=== PATIENT | female | born 1985 | race Caucasian/White ===

== ENCOUNTER 2017-07-27 11:46 | Emergency (ER) | payer OTHER ==
[2017-07-27 11:52] VITALS: BP 118/68
[2017-07-27] MEDS ORDERED: LIDOCAINE 1% INJ (10 MG/ML) 10 ML MDV INJ ONE (12:19)
--- NOTE | 2017-07-27 13:01 | ER Document Report ---
ED Skin Rash/Insect Bite/Abscs - General Chief Complaint: Abscess Stated Complaint: ABSCESS/INNER THIGH Time Seen by Provider: 07/27/17 12:06 Notes: pt presents with painful area to left inner thigh. has taken septra with no improvement - HPI Patient complains to provider of: Tender/swollen area Onset/Duration: Gradual, Persistent Skin Temperature: Warm Quality of rash: Painful - Related Data Allergies/Adverse Reactions: No Known Allergies Allergy (Verified 07/27/17 12:01) Past Medical History - General Information source: Patient - Social History Smoking Status: Current Every Day Smoker Chew tobacco use (# tins/day): No Frequency of alcohol use: None Drug Abuse: None Family History: None Patient has suicidal ideation: No Patient has homicidal ideation: No - Medical History Medical History: Negative Renal/ Medical History: Denies: Hx Peritoneal Dialysis Past Surgical History: Reports: Hx Abdominal Surgery - gastric sleeve, Hx Section Review of Systems - Review of Systems Constitutional: No symptoms reported EENT: No symptoms reported Cardiovascular: No symptoms reported Respiratory: No symptoms reported Gastrointestinal: No symptoms reported Genitourinary: No symptoms reported Female Genitourinary: No symptoms reported Musculoskeletal: No symptoms reported Skin: No symptoms reported Hematologic/Lymphatic: No symptoms reported Neurological/Psychological: No symptoms reported Physical Exam - Vital signs Vitals: Temp Pulse Resp BP Pulse Ox 99.3 F 86 16 118/68 100 07/27/17 11:51 07/27/17 11:51 07/27/17 11:51 07/27/17 11:51 07/27/17 11:51 Interpretation: Normal - General General appearance: Appears well, Alert - HEENT Head: Normocephalic, Atraumatic Eyes: Normal Pupils: PERRL - Respiratory Respiratory status: No respiratory distress Chest status: Nontender Breath sounds: Normal Chest palpation: Normal - Cardiovascular Rhythm: Regular Heart sounds: Normal auscultation Murmur: No - Abdominal Inspection: Normal Distension: No distension Bowel sounds: Normal Tenderness: Nontender Organomegaly: No organomegaly - Back Back: Normal, Nontender - Extremities General upper extremity: Normal inspection, Nontender, Normal color, Normal ROM , Normal temperature General lower extremity: Normal inspection, Nontender, Normal color, Normal ROM , Normal temperature, Normal weight bearing. No: Dion's sign - Neurological Neuro grossly intact: Yes Cognition: Normal Orientation: AAOx4 Douds Coma Scale Eye Opening: Spontaneous Judy Coma Scale Verbal: Oriented D[place] Coma Scale Motor: Obeys Commands Douds Coma Scale Total: 15 Speech: Normal Motor strength normal: LUE, RUE, LLE, RLE Sensory: Normal - Psychological Associated symptoms: Normal affect, Normal mood - Skin Skin Temperature: Warm Skin Moisture: Dry Skin Color: Normal Skin irregularity: Abscess - left inner thigh Course - Re-evaluation Re-evalutation: 07/27/17 13:11 3cc 1% lidocaine injected into indurated area, 18g needle inserted into area. no purulent material expressed. - Vital Signs Vital signs: Temp Pulse Resp BP Pulse Ox 99.3 F 86 16 118/68 100 07/27/17 11:51 07/27/17 11:51 07/27/17 11:51 07/27/17 11:51 07/27/17 11:51 Discharge - Discharge Clinical Impression: Abscess of left thigh Condition: Stable Disposition: HOME, SELF-CARE Instructions: Abscess ([facility]), Antibiotic Therapy ([facility]) Additional Instructions: take your antibiotic as prescribed apply warm compresses to area follow up with primary care if symptoms worsen Prescriptions: Clindamycin HCl 300 mg PO Q6H #40 capsule
== END 2017-07-27 13:13 | disposition home or self-care (01) ==
LOC: ER 11:46
PROC: 0H9JXZZ Drainage of Left Upper Leg Skin, External Approach (ICD-10-PCS; principal; 2017-07-27)
DX: L02.416 Cutaneous abscess of left lower limb (principal); F17.200 Nicotine dependence, unspecified, uncomplicated
CPT/HCPCS: 99283

== ENCOUNTER 2017-10-18 18:42 | Emergency (ER) | payer OTHER ==
[2017-10-18 18:54] VITALS: BP 113/66
[2017-10-18] MEDS ORDERED: LIDOCAINE 4%/TETRACAINE 0.5%/EPI 0.18% 5 ML TOPICAL SOLN TOP ONE (18:55)
--- NOTE | 2017-10-18 19:15 | ER Document Report ---
ED Skin Rash/Insect Bite/Abscs - General Chief Complaint: Abscess Stated Complaint: ABSCESS/UPPER LEFT LEG Time Seen by Provider: 10/18/17 18:54 Mode of Arrival: Ambulatory Information source: Patient Notes: 32-year-old female presented ED for abscess to the left upper thigh. She states she has had it in the same area before but it is come back again and is worse this time than before. She states it is very painful at this time. She states it first appeared yesterday. TRAVEL OUTSIDE OF THE [place] IN LAST 30 DAYS: No - HPI Patient complains to provider of: Tender/swollen area Onset: Yesterday Onset/Duration: Gradual, Intermittent - Had a abscess and this is same area before, Worse Severity: Moderate Pain Level: 3 Skin Character: Abscess Quality of rash: Painful Identify cause: No Exacerbated by: Denies Relieved by: Denies Similar symptoms previously: Yes Recently seen / treated by doctor: No - Related Data Allergies/Adverse Reactions: No Known Allergies Allergy (Verified 07/27/17 12:01) Past Medical History - General Information source: Patient Last Menstrual Period: Now - Social History Smoking Status: Current Every Day Smoker Cigarette use (# per day): Yes - 4 cigarettes a day Chew tobacco use (# tins/day): No Smoking Education Provided: Yes - 4 minutes Frequency of alcohol use: None Drug Abuse: None Occupation: Student Lives with: Family Family History: None - Past Medical History Cardiac Medical History: Reports: None Pulmonary Medical History: Reports: None EENT Medical History: Reports: None Neurological Medical History: Reports: None Endocrine Medical History: Reports: None Renal/ Medical History: Reports: None Malignancy Medical History: Reports: None GI Medical History: Reports: None Musculoskeltal Medical History: Reports None Skin Medical History: Reports None Psychiatric Medical History: Reports: None Traumatic Medical History: Reports: None Infectious Medical History: Reports: None Past Surgical History: Reports: Hx Abdominal Surgery - gastric sleeve, Hx Section - 2 Review of Systems - Review of Systems Constitutional: No symptoms reported EENT: No symptoms reported Cardiovascular: No symptoms reported Respiratory: No symptoms reported Gastrointestinal: No symptoms reported Genitourinary: No symptoms reported Female Genitourinary: No symptoms reported Musculoskeletal: No symptoms reported Skin: Other - Abscess left upper thigh Hematologic/Lymphatic: No symptoms reported Neurological/Psychological: No symptoms reported -: Yes All other systems reviewed and negative Physical Exam - Vital signs Vitals: Temp Pulse Resp BP Pulse Ox 98.2 F 79 18 113/66 100 10/18/17 18:49 10/18/17 18:49 10/18/17 18:49 10/18/17 18:49 10/18/17 18:49 Interpretation: Normal - General General appearance: Appears well, Alert - HEENT Head: Normocephalic, Atraumatic Eyes: Normal Pupils: PERRL - Respiratory Respiratory status: No respiratory distress Chest status: Nontender Breath sounds: Normal Chest palpation: Normal - Cardiovascular Rhythm: Regular Heart sounds: Normal auscultation Murmur: No - Abdominal Inspection: Normal Distension: No distension Bowel sounds: Normal Tenderness: Nontender Organomegaly: No organomegaly - Back Back: Normal, Nontender - Extremities General upper extremity: Normal inspection, Nontender, Normal color, Normal ROM , Normal temperature General lower extremity: Normal inspection, Nontender, Normal color, Normal ROM , Normal temperature, Normal weight bearing. No: Dion's sign - Neurological Neuro grossly intact: Yes Cognition: Normal Orientation: AAOx4 Judy Coma Scale Eye Opening: Spontaneous Gilbert Coma Scale Verbal: Oriented Judy Coma Scale Motor: Obeys Commands Judy Coma Scale Total: 15 Speech: Normal Motor strength normal: LUE, RUE, LLE, RLE Sensory: Normal - Psychological Associated symptoms: Normal affect, Normal mood - Skin Skin Temperature: Warm Skin Moisture: Dry Skin Color: Normal Skin irregularity: Abscess Location of irregularity: Other - Left upper thigh almost to the groin Irregularity with: Swelling, Tenderness, Warmth Course - Re-evaluation Re-evalutation: 10/18/17 20:01 Large abscess to the left inner upper thigh. I&D completed with a large amount of purulent drainage. Patient started on Keflex and Bactrim and given a Toradol injection in the emergency room as she has had a gastric sleeve in the past and cannot take ibuprofen. She will be discharged home with prescription for Keflex and Bactrim. Patient encouraged to take Epson salt baths or use Epson salt compresses to the area 3-4 times a day and change the dressing. - Vital Signs Vital signs: Temp Pulse Resp BP Pulse Ox 98.2 F 77 18 113/66 100 10/18/17 18:49 10/18/17 20:32 10/18/17 20:32 10/18/17 18:49 10/18/17 20:32 Procedures - Incision and Drainage Left Thigh Time completed: 20:00 Type: Simple Anesthetic type: 1% Lidocaine mL's of anesthetic: 5 - l.e.t and lidocaine Blade size: 11 I&D procedure: Shurclens applied, Sterile dressing applied Incision Method: Incision made by scalpel Amount/type of drainage: large amount of purulent drainage Discharge - Discharge Clinical Impression: Abscess left upper inner thigh Condition: Stable Disposition: HOME, SELF-CARE Additional Instructions: ABSCESS: You have an abscess (boil). This a pus-forming infection, usually due to staph. Some boils may be left to drain on their own, but most require lancing. From the time the tender lump first appears, it may be three or four days before the abscess is ready to johanna. Local heat and rest help at this stage of treatment. An antibiotic may prevent spread of the infection. Once the abscess is opened, packing may be placed into it. This is done so pus is not sealed inside by premature closure of the cavity. The packing will be removed at your follow-up visit or you may be advised to remove it yourself at home. Sometimes this packing must be replaced a few times during healing. The wound will heal with surprisingly little scar. Depending on the size and location of an abscess, healing can take one to four weeks. You may shower and wash the area around the incision site two or three times a day. Antibiotics may be prescribed, but are usually not necessary after an abscess has been drained. If you develop fever, chills, worsening pain, or increasing swelling in the area, call the doctor or return immediately. POST INCISION AND DRAINAGE: You have had an incision made to allow drainage of an abscess. The incision must remain open so that pus and debris can drain from the wound. If the abscess cavity is large, packing is placed. This keeps the tissues from collapsing and trapping pus inside, while the body shrinks the cavity. The packing may need to be replaced every day or two. The physician will instruct you on the packing. Keep a bulky dressing over the area. Replace it if it becomes saturated with blood or pus. Do not disturb the packing (if present). You may shower and cleanse the area with gentle soap and warm water two or three times a day. Local warmth may be soothing, and may promote faster healing. Return if you develop high fever or chills, or if you note spreading redness, increasing swelling, or increasing tenderness. Epsom Salt Soaks Soak the wound area in a container of warm epsom salt water. If you can't get the wound area into a bucket or cruz, use a folded towel soaked in the epsom salt solution and apply to the area. Use clean hot tap water (about the temperature of a very warm bath), mixing in about one (1) teaspoon for every pint of water. Two gallon --> 16 teaspoons Epsom Salts One gallon --> 8 teaspoons Epsom Salts Two quarts --> 4 teaspoons Epsom Salts One quart --> 2 teaspoons Epsom Salts Soak the wound for about 20 minutes while gently moving it around in the water. Repeat this four (4) times a day. ORAL NARCOTIC MEDICATION: You have been given a prescription for pain control. This medication is a narcotic. It's best taken with food, as nausea can result if taken on an empty stomach. Don't operate machinery or drive within six hours of taking this medication. Do not combine this medicine with alcohol, or with any medication which can cause sedation (such as cold tablets or sleeping pills) unless you get permission from the physician. Narcotics tend to cause constipation. If possible, drink plenty of fluids and eat a diet high in fiber and fruits. CEPHALEXIN: The antibiotic you've been prescribed is a member of the cephalosporin class. This type of antibiotic covers a wide variety of infections, including those of the skin, lungs, and urinary tract. It's useful for staph infections. This antibiotic is slightly similar to the penicillin family. In rare cases , a person who is allergic to penicillin will also be allergic to this medication. If you have had a severe allergic reaction to penicillin, and have not taken this antibiotic since that time, notify your doctor. Antibiotics which cover many germs ("broad spectrum" antibiotics) are more likely to cause diarrhea or "yeast" infections. Women prone to vaginal yeast problems may suffer an attack after taking this antibiotic. In infants, oral thrush (white spots "stuck" on the cheek) or yeast diaper rash may result. See your doctor if these problems occur. Call at once if you develop itching, hives , shortness of breath, or lightheadedness. TRIMETHOPRIM-SULFA: You have been given a prescription for trimethoprim-sulfa (TMS, Septra, Bactrim). This is a combination antibiotic of the sulfa class, often used for urinary tract infections, middle ear infections, bronchitis, shigella intestinal infection, and Pneumocystis pneumonia. TMS is usually well-tolerated. Occasional side effects include nausea and decreased appetite. Septra is not recommended for infants less than two months of age. Do not take this medication if you have experienced severe side effects or allergy to sulfa medicine. You should stop this medicine at once and contact your physician if you develop any rash, joint pain, shortness of breath, bruising, or jaundice ( yellow color in the skin), or if you develop any other new or unusual symptoms. FOLLOW-UP CARE: Most simple abscesses will not require a follow up visit. If you had packing placed in the abscess, remove it as instructed by the physician. If you have been referred to a physician for follow-up care, call the physicians office for an appointment as you were instructed or within the next two days. If you experience worsening or a significant change in your symptoms, return to the Emergency Department at any time for re-evaluation. Prescriptions: Hydrocodone/Acetaminophen [May 5-325 Tablet] 1 each PO Q6HP PRN #7 tablet PRN Reason: Cephalexin Monohydrate [Keflex 500 mg Capsule] 500 mg PO Q6H 5 Days capsule Sulfamethoxazole/Trimethoprim [Bactrim Ds Tablet] 1 each PO BID #20 tablet Forms: Smoking Cessation Education Referrals: TYRONE LOYD PA-C [Primary Care Provider] - Follow up in 3-5 days
[2017-10-18] MEDS ORDERED: SULFAMETHOXAZOLE/TRIMETHOPRIM 800-160 MG TABLET PO ONE (19:59)
[2017-10-18] MEDS ORDERED: KETOROLAC TROMETHAMINE 60 MG/2 ML SDV IM ONE (19:59)
[2017-10-18] MEDS ORDERED: CEPHALEXIN 500 MG CAPSULE PO ONE (19:59)
== END 2017-10-18 20:32 | disposition home or self-care (01) ==
LOC: ER 18:42
PROC: 0H9JXZZ Drainage of Left Upper Leg Skin, External Approach (ICD-10-PCS; principal; 2017-10-18)
DX: L02.416 Cutaneous abscess of left lower limb (principal); F17.210 Nicotine dependence, cigarettes, uncomplicated
CPT/HCPCS: 99406; 99283; 96372; 10060; J1885; J3490

== ENCOUNTER 2017-10-26 11:41 | Emergency (ER) | payer OTHER ==
--- NOTE | 2017-10-26 12:03 | ER Document Report ---
HPI - HPI Patient complains to provider of: abscess recheck Onset: Other - 8 days ago Quality of pain: Throbbing Pain Level: 4 Context: 32 yo female with left inquinal (underwear line) abscess that was incised 8 days ago Started to get inflamed again, finished the antibiotics. No fever. Associated Symptoms: None Exacerbated by: Denies Relieved by: Denies - ROS ROS below otherwise negative: Yes Systems Reviewed and Negative: Yes All other systems reviewed and negative - CONSTITUTIONAL Constitutional: DENIES: Fever, Chills - EENT EENT: DENIES: Sore Throat, Ear Pain, Eye problems - NEURO Neurology: DENIES: Headache, Weakness, Vision blurred, Dizzinesss / Vertigo - CARDIOVASCULAR Cardiovascular: DENIES: Chest pain - RESPIRATORY Respiratory: DENIES: Trouble Breathing, Coughing - GASTROINTESTINAL Gastrointestinal: DENIES: Abdominal Pain, Black / Bloody Stools - URINARY Urinary: DENIES: Dysuria, Urgency, Frequency - REPRODUCTIVE Reproductive: DENIES: :, Postmenopausal, Abnormal bleeding / discharge - MUSCULOSKELETAL Musculoskeletal: DENIES: Extremity pain Past Medical History - General Information source: Patient - Social History Smoking Status: Current Every Day Smoker Chew tobacco use (# tins/day): No Frequency of alcohol use: None Drug Abuse: None Lives with: Family Family History: None Patient has suicidal ideation: No Patient has homicidal ideation: No - Medical History Medical History: Negative Renal/ Medical History: Denies: Hx Peritoneal Dialysis Past Surgical History: Reports: Hx Abdominal Surgery - gastric sleeve, Hx Section - 2 Vertical Provider Document - CONSTITUTIONAL Agree With Documented VS: Yes General Appearance: No Apparent Distress - INFECTION CONTROL TRAVEL OUTSIDE OF THE [place] IN LAST 30 DAYS: No - HEENT HEENT: Normocephalic - MUSCULOSKELETAL/EXTREMETIES Musculoskeletal/Extremeties: MAEW - NEURO Level of Consciousness: Awake - DERM Notes: minimal inflammation to previously incised left inquinal crease Course - Vital Signs Vital signs: Temp Pulse Resp BP Pulse Ox 97.8 F 80 16 131/82 H 100 10/26/17 11:55 10/26/17 11:55 10/26/17 11:55 10/26/17 11:55 10/26/17 11:55 Discharge - Discharge Clinical Impression: left inquinal folliculitis Condition: Good Disposition: HOME, SELF-CARE Instructions: Folliculitis ([facility]), Trimethoprim-Sulfa ([facility]) Additional Instructions: warm compress septra until it is gone bactroban small amount 3 times per day for a week to er if worsens no underwear to cause friction in the area Prescriptions: Fluconazole [Diflucan] 150 mg PO ONCE PRN #1 tablet PRN Reason: Sulfamethoxazole/Trimethoprim [Sulfamethoxazole-Tmp Ds Tablet] 1 each PO BID # 14 tablet Referrals: TYRONE LOYD PA-C [Primary Care Provider] - Follow up as needed
[2017-10-26] MEDS ORDERED: MUPIROCIN 2% OINTMENT 22 GM TP ONE (12:11)
[2017-10-26 13:00] VITALS: BP 109/63
== END 2017-10-26 13:01 | disposition home or self-care (01) ==
LOC: ER 11:41
DX: L73.9 Follicular disorder, unspecified (principal); F17.200 Nicotine dependence, unspecified, uncomplicated
CPT/HCPCS: 99283; J3490

== ENCOUNTER 2018-05-11 21:35 | Emergency (ER) | payer SELFPAY ==
[2018-05-11 22:03] VITALS: BP 113/63
[2018-05-12] MEDS ORDERED: FAMOTIDINE 20 MG TABLET PO ONE (00:06)
[2018-05-12] MEDS ORDERED: LIDOCAINE 4% TRANSPARENT DRESSING 5 GM KIT TP ONE (00:06)
[2018-05-12] MEDS ORDERED: LIDOCAINE 1% INJ-PF (10 MG/ML) 30 ML SDV INJ ONE (00:06)
[2018-05-12] MEDS ORDERED: ONDANSETRON 4 MG TAB.RAPDIS PO ONE (00:07)
--- NOTE | 2018-05-12 00:08 | ER Document Report ---
ED Medical Screen (RME) - General Chief Complaint: Abscess Stated Complaint: ABSCESS UPPER THIGH Time Seen by Provider: 05/12/18 00:06 Notes: 33-year-old with history of hidradenitis suppurativa with chief complaint of abscess on the left groin area for the past 5 days. States she felt chills this morning. She has been taking ibuprofen and now she has GERD and she vomited once, she has a history of gastric sleeve. No abdominal pain now. No hematemesis. TRAVEL OUTSIDE OF THE [place] IN LAST 30 DAYS: No - Related Data Allergies/Adverse Reactions: No Known Allergies Allergy (Verified 10/26/17 11:42) Past Medical History Renal/ Medical History: Denies: Hx Peritoneal Dialysis Past Surgical History: Reports: Hx Abdominal Surgery - gastric sleeve, Hx Section - 2 Physical Exam - Vital signs Vitals: Temp Pulse Resp BP Pulse Ox 98.5 F 83 15 113/63 100 05/11/18 22:01 05/11/18 22:01 05/11/18 22:01 05/11/18 22:01 05/11/18 22:01 - General General appearance: Other - Patient walks awkwardly trying to avoid closing the left leg - Cardiovascular Rhythm: Regular. No: Tachycardia Heart sounds: Normal auscultation, S1 appreciated, S2 appreciated Course - Vital Signs Vital signs: Temp Pulse Resp BP Pulse Ox 98.5 F 83 15 113/63 100 05/11/18 22:01 05/11/18 22:01 05/11/18 22:01 05/11/18 22:01 05/11/18 22:01 Doctor's Discharge - Discharge Referrals: TYRONE LOYD PA-C [Primary Care Provider] - Follow up as needed
[2018-05-12] MEDS ORDERED: HYDROCODONE/ACETAMINOPHEN 5-325 MG (6 TAB/ER DISP) PO PRN (01:20)
--- NOTE | 2018-05-12 01:20 | ER Document Report ---
ED Skin Rash/Insect Bite/Abscs - General Chief Complaint: Abscess Stated Complaint: ABSCESS UPPER THIGH Time Seen by Provider: 05/12/18 00:06 Notes: Patient is a 33-year-old female that comes to the emergency department for chief complaint of left inguinal abscess. She states it has been developing for 5 days. She has a history of hidradenitis suppurativa, has seen dermatology , she has had recurrence of the same area several times. She denies diabetes, she has had Humira dose in the past for this. She states earlier she started feeling sick because of it. She denies fevers. She denies any other complaints. LMP within the past month. TRAVEL OUTSIDE OF THE [place] IN LAST 30 DAYS: No - Related Data Allergies/Adverse Reactions: No Known Allergies Allergy (Verified 10/26/17 11:42) Past Medical History - General Information source: Patient - Social History Smoking Status: Never Smoker Frequency of alcohol use: None Drug Abuse: None Lives with: Family Family History: None - Medical History Medical History: Negative Renal/ Medical History: Denies: Hx Peritoneal Dialysis Past Surgical History: Reports: Hx Abdominal Surgery - gastric sleeve, Hx Section - 2 Review of Systems - Review of Systems Constitutional: See HPI EENT: No symptoms reported Cardiovascular: No symptoms reported Respiratory: No symptoms reported Gastrointestinal: No symptoms reported Genitourinary: No symptoms reported Female Genitourinary: No symptoms reported Musculoskeletal: No symptoms reported Skin: See HPI Hematologic/Lymphatic: No symptoms reported Neurological/Psychological: No symptoms reported Physical Exam - Vital signs Vitals: Temp Pulse Resp BP Pulse Ox 98.5 F 83 15 113/63 100 05/11/18 22:01 05/11/18 22:01 05/11/18 22:01 05/11/18 22:01 05/11/18 22:01 - Notes Notes: GENERAL: Alert, interacts well. No acute distress. Patient does walk somewhat awkwardly however HEAD: Normocephalic, atraumatic. EYES: Pupils equal, round, and reactive to light. Extraocular movements intact. ENT: Oral mucosa moist, tongue midline. Oropharynx unremarkable. Airway patent. Nares patent, no nasal septal hematoma, TM's intact. NECK: Full range of motion. Supple. Trachea midline. LUNGS: Clear to auscultation bilaterally, no wheezes, rales, or rhonchi. No respiratory distress. HEART: Regular rate and rhythm. No murmur ABDOMEN: Soft, non-tender. Non-distended. Bowel sounds present in all 4 quadrants. GENITOURINARY: There is an abscess over the left inguinal area along the medial thigh, does not extend to the genitals, this is very swollen and fluctuant, there is minimal surrounding erythema, no nearby lymphadenopathy noted. Exam performed with Beatrice BLANKENSHIP at bedside. EXTREMITIES: Moves all 4 extremities spontaneously. No edema, normal radial and dorsalis pedis pulses bilaterally. No cyanosis. BACK: no cervical, thoracic, lumbar midline tenderness. No saddle anesthesia, normal distal neurovascular exam. NEUROLOGICAL: Alert and oriented x3. Normal speech. [cranial nerves II through XII grossly intact]. PSYCH: Normal affect, normal mood. SKIN: Warm, dry, normal turgor. No rashes or lesions noted. Course - Re-evaluation Re-evalutation: Patient had taken ibuprofen and had an upset stomach afterwards along with her history of gastric sleeve, however this resolved spontaneously, abdomen is soft and unremarkable on exam, no additional need for medications, these were canceled. Patient tolerated incision and drainage very well, area was packed after discussion of options, placed on Bactrim initially but then patient recalled that she is taking doxycycline and the prescription was canceled. Patient has excellent follow-up, she states she is going to follow-up with both dermatology and general surgery. Discussed return precautions in detail, discussed wound care, patient and mother state understanding and agreement. - Vital Signs Vital signs: Temp Pulse Resp BP Pulse Ox 98.5 F 83 15 113/63 100 05/11/18 22:01 05/11/18 22:01 05/11/18 22:01 05/11/18 22:01 05/11/18 22:01 Procedures - Incision and Drainage Left inguinal/inner thigh Type: Single Blade size: 11 I&D procedure: Shurclens applied, Iodoform packing placed, Sterile dressing applied Incision Method: Incision made by scalpel Amount/type of drainage: Large amount of purulent drainage, approximately 10 cc Discharge - Discharge Clinical Impression: Inguinal abscess Condition: Stable Disposition: HOME, SELF-CARE Additional Instructions: Your evaluation is consistent with an abscess, this has been drained, take the antibiotic as prescribed. Take the packing out in 2 days. Keep clean, clean with soap and water, keep absorbing dressing over the area. Follow-up with primary care. Return to the emergency department for any concerning worsening symptoms including developing or spreading redness, fever, or any other concerning or worsening symptoms. Prescriptions: Sulfamethoxazole/Trimethoprim [Bactrim Ds Tablet] 1 each PO BID #10 tablet Forms: Return to Work Referrals: TYRONE LOYD PA-C [Primary Care Provider] - Follow up as needed
== END 2018-05-12 01:44 | disposition home or self-care (01) ==
LOC: ER 21:35
DX: L02.214 Cutaneous abscess of groin (principal); R19.8 Other specified symptoms and signs involving the digestive system and abdomen; Z98.84 Bariatric surgery status
CPT/HCPCS: 99283; 10060; A6266

== ENCOUNTER 2019-01-24 11:50 | Emergency (ER) | payer OTHER ==
[2019-01-24 13:03] LABS: ABSOLUTE EOSINOPHILS # (AUTO) 0.1 10^3/uL (0.0-0.6); ABSOLUTE LYMPHOCYTES (AUTO) 2.7 10^3/uL (0.5-4.7); ABSOLUTE MONOCYTES (AUTO) 0.7 10^3/uL (0.1-1.4); ABSOLUTE NEUT (AUTO) 4.7 10^3/uL (1.7-8.2); BASOPHILS % (AUTO) 0.6 % (0-2); HEMATOCRIT 41.8 % (36.0-47.0); HEMOGLOBIN 14.4 g/dL (12.0-15.5); LYMPHOCYTES % (AUTO) 33.1 % (13-45); MEAN CORPUSCULAR HEMOGLOBIN 30.8 pg (27.0-33.4); MEAN CORPUSCULAR HGB CONC 34.5 g/dL (32.0-36.0); MEAN CORPUSCULAR VOLUME 89 fl (80-97); MONOCYTES % (AUTO) 8.9 % (3-13); PLATELET COUNT 273 10^3/uL (150-450); RED BLOOD COUNT 4.69 10^6/uL (3.72-5.28); RED CELL DISTRIBUTION WIDTH 13.6 % (11.5-14.0); SEGMENTED NEUTROPHILS % (AUTO) 56.4 % (42-78); TOTAL CELLS COUNTED % (AUTO) 100 %; WHITE BLOOD COUNT 8.3 10^3/uL (4.0-10.5)
[2019-01-24 13:18] LABS: ALBUMIN 4.2 g/dL (3.5-5.0); ALKALINE PHOSPHATASE 43 U/L (38-126); ANION GAP 7 (5-19); ASPARTATE AMINO TRANSFERASE 20 U/L (14-36); BILIRUBIN,DIRECT 0.3 mg/dL (0.0-0.4); BILIRUBIN,TOTAL 0.5 mg/dL (0.2-1.3); BLOOD UREA NITROGEN 10 mg/dL (7-20); CALCIUM 9.7 mg/dL (8.4-10.2); CARBON DIOXIDE 26 mmol/L (22-30); CHLORIDE 106 mmol/L (98-107); GLUCOSE 83 mg/dL (75-110); POTASSIUM 4.2 mmol/L (3.6-5.0); TOTAL PROTEIN 6.9 g/dL (6.3-8.2)
[2019-01-24 13:29] LABS: APPEARANCE,URINE CLEAR; BILIRUBIN,URINE NEGATIVE (NEGATIVE); COLOR,URINE YELLOW; GLUCOSE, URINE NEGATIVE (NEGATIVE); KETONES,URINE NEGATIVE (NEGATIVE); LEUKOCYTE ESTERASE,URINE NEGATIVE (NEGATIVE); NITRITE,URINE NEGATIVE (NEGATIVE); PROTEIN,URINE NEGATIVE (NEGATIVE); URINE SPECIFIC GRAVITY 1.005; UROBILINOGEN,URINE NEGATIVE mg/dL (<2.0)
--- NOTE | 2019-01-24 13:31 | ER Document Report ---
ED Medical Screen (RME) - General Chief Complaint: Abdominal Pain Stated Complaint: STOMACH PAIN Time Seen by Provider: 01/24/19 13:12 Primary Care Provider: LUIS ROBB PA [Primary Care Provider] - Follow up as needed Mode of Arrival: Ambulatory Information source: Patient Notes: This 33-year-old female with complaints of abdominal pain for the past couple days. 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 Reports she had gastric sleeve several years ago. She is been doing fine. She reports last couple days she has had abdominal pain with some nausea. She has not vomited. Today she had this excruciating pain her abdomen is soft but very very very tender to palpate. I have greeted and performed a rapid initial assessment of this patient. A comprehensive ED assessment and evaluation of the patient, analysis of test resu lts and completion of the medical decision making process will be conducted by additional ED providers. Dictation of this chart was performed using voice recognition software; therefore, there may be some unintended grammatical errors. TRAVEL OUTSIDE OF THE [place] IN LAST 30 DAYS: No - Related Data Allergies/Adverse Reactions: No Known Allergies Allergy (Verified 01/24/19 11:51) Past Medical History - Social History Chew tobacco use (# tins/day): No Frequency of alcohol use: None Drug Abuse: None Renal/ Medical History: Reports: Hx Kidney Stones. Denies: Hx Peritoneal Dialysis Past Surgical History: Reports: Hx Abdominal Surgery - gastric sleeve, Hx Yevgeniy arean Section - 2, Hx Cholecystectomy, Hx Tonsillectomy Physical Exam - Vital signs Vitals: Temp Pulse Resp BP Pulse Ox 98.6 F 82 18 126/67 H 96 01/24/19 11:57 01/24/19 11:57 01/24/19 11:57 01/24/19 11:57 01/24/19 11:57 Course - Vital Signs Vital signs: Temp Pulse Resp BP Pulse Ox 98.6 F 82 18 126/67 H 96 01/24/19 11:57 01/24/19 11:57 01/24/19 11:57 01/24/19 11:57 01/24/19 11:57 - Laboratory Result Diagrams: 01/24/19 12:50 01/24/19 12:50 Doctor's Discharge - Discharge Referrals: CEZAR,LUIS, PA [Primary Care Provider] - Follow up as needed
--- NOTE | 2019-01-24 15:04 | ER Document Report ---
ED GI/ - General Chief Complaint: Abdominal Pain Stated Complaint: STOMACH PAIN Time Seen by Provider: 01/24/19 13:12 Primary Care Provider: LUIS ROBB PA [Primary Care Provider] - Follow up tomorrow Mode of Arrival: Ambulatory Information source: Patient Notes: 33-year-old female presented to ED for complaint of abdominal pain upper right and mid upper abdomen. She also complains of some right lower quadrant pain. She states is been excruciating today. She states this started after she lifted the patient. She states she did have a gastric sleeve several years ago and has been doing fine. She states she has had pain for couple days now with some na usea but is not nauseated at this time. She states she has not vomited. She is alert oriented respirations regular and unlabored. She states she also has frequent stools but this is normal since she had a gastric sleeve. Patient is alert oriented respirations regular and unlabored speaking in full sentences walks with even steady gait. TRAVEL OUTSIDE OF THE [place] IN LAST 30 DAYS: No - HPI Patient complains to provider of: Abdominal pain, Diarrhea - This is her normal. No: Vomiting Onset: Other - couple days Timing/Duration: Intermittent Quality of pain: Sharp Severity at maximum: Severe Severity in ED: Moderate Pain Level: 3 Location: Epigastric, RUQ, RLQ Vaginal bleeding (Compared to normal period): None Associated symptoms: Diarrhea, Nausea. denies: Vomiting Exacerbated by: Movement - This is her normal, Walking, Food Relieved by: Denies Similar symptoms previously: Yes Recently seen / treated by doctor: No - Related Data Allergies/Adverse Reactions: No Known Allergies Allergy (Verified 01/24/19 11:51) Past Medical History - General Information source: Patient - Social History Smoking Status: Current Every Day Smoker Chew tobacco use (# tins/day): No Frequency of alcohol use: None Drug Abuse: None Occupation: Home health Lives with: Alone - Children moist Family History: None Patient has suicidal ideation: No Patient has homicidal ideation: No - Past Medical History Cardiac Medical History: Reports: None Pulmonary Medical History: Reports: None EENT Medical History: Reports: None Neurological Medical History: Reports: None Endocrine Medical History: Reports: None Renal/ Medical History: Reports: Hx Kidney Stones, Other - Endometriosis Malignancy Medical History: Reports: None GI Medical History: Reports: Other - Gastric sleeve Musculoskeletal Medical History: Reports None Skin Medical History: Reports None Psychiatric Medical History: Reports: None Traumatic Medical History: Reports: None Infectious Medical History: Reports: None Past Surgical History: Reports: Hx Abdominal Surgery - gastric sleeve, Hx Adenoidectomy, Hx Section - 2, Hx Cholecystectomy, Hx Gynecologic Surgery - LEEP, Hx Tonsillectomy, Hx Tubal Ligation - Immunizations Immunizations up to date: Yes Hx Diphtheria, Pertussis, Tetanus Vaccination: Yes - 2013 Review of Systems - Review of Systems Constitutional: No symptoms reported EENT: No symptoms reported Cardiovascular: No symptoms reported Respiratory: No symptoms reported Gastrointestinal: Abdominal pain - Entire right side and epigastric, Diarrhea - Normally has liquid stools gastric sleeve, Nausea. denies: Vomiting Genitourinary: No symptoms reported Female Genitourinary: No symptoms reported Musculoskeletal: No symptoms reported Skin: No symptoms reported Hematologic/Lymphatic: No symptoms reported Neurological/Psychological: No symptoms reported -: Yes All other systems reviewed and negative Physical Exam - Vital signs Vitals: Temp Pulse Resp BP Pulse Ox 98.6 F 82 18 126/67 H 96 01/24/19 11:57 01/24/19 11:57 01/24/19 11:57 01/24/19 11:57 01/24/19 11:57 Interpretation: Normal - General General appearance: Appears well, Alert - HEENT Head: Normocephalic, Atraumatic Eyes: Normal Pupils: PERRL - Respiratory Respiratory status: No respiratory distress Chest status: Nontender Breath sounds: Normal Chest palpation: Normal - Cardiovascular Rhythm: Regular Heart sounds: Normal auscultation Murmur: No - Abdominal Inspection: Normal Distension: No distension Bowel sounds: Normal Tenderness: Tender - Right upper lower and mid and epigastric tenderness no rebound. No: McBurney's point, Andres's sign, Guarding, Rebound Organomegaly: No organomegaly - Back Back: Normal, Nontender - Extremities General upper extremity: Normal inspection, Nontender, Normal color, Normal ROM, Normal temperature General lower extremity: Normal inspection, Nontender, Normal color, Normal ROM, Normal temperature, Normal weight bearing. No: Dion's sign - Neurological Neuro grossly intact: Yes Cognition: Normal Orientation: AAOx4 [place] Coma Scale Eye Opening: Spontaneous Judy Coma Scale Verbal: Oriented Judy Coma Scale Motor: Obeys Commands Judy Coma Scale Total: 15 Speech: Normal Motor strength normal: LUE, RUE, LLE, RLE Sensory: Normal - Psychological Associated symptoms: Normal affect, Normal mood - Skin Skin Temperature: Warm Skin Moisture: Dry Skin Color: Normal Course - Re-evaluation Re-evalutation: 01/24/19 20:[address] discussed with patient and written report of labs and CT given to patient. Patient was discharged home after she was feeling much better. Patient is instructed to follow-up with her primary care doctor and a urologist if she develops symptoms of kidney stone or hydronephrosis. Patient verbalized understanding and agreement with treatment plan and patient was discharged home. - Vital Signs Vital signs: Temp Pulse Resp BP Pulse Ox 98.5 F 73 16 116/78 100 01/24/19 16:22 01/24/19 16:22 01/24/19 16:22 01/24/19 16:22 01/24/19 16:22 - Laboratory Result Diagrams: 01/24/19 12:50 01/24/19 12:50 - Diagnostic Test Radiology reviewed: Image reviewed, Reports reviewed Discharge - Discharge Clinical Impression: small non-obstructing kidney stones Abdominal pain Qualifiers: Abdominal location: epigastric Qualified Code(s): R10.13 - Epigastric pain Condition: Stable Disposition: HOME, SELF-CARE Additional Instructions: ABDOMINAL PAIN: There are many causes of abdominal pain. Pain can mean a serious problem requiring surgery (such as appendicitis). It can also be an innocent problem that goes away on its own (such as a viral infection). Often, time must pass to determine the cause of pain. The physician does not feel that hospitalization is necessary, at present. Things may change within the next 24 hours. Call the doctor or come back for re- examination if any problems occur, such as: (1) Pain that becomes more severe, steady, or becomes concentrated in one specific area. Also, pain that is more severe with movement or coughing. (2) Vomiting that persists or becomes more frequent. (3) Blood in the vomitus, urine, or bowel movements. Blood in the stool may have a tarry or black appearance. (4) Shaking chills or fever greater than 100 degrees F. (5) The abdomen becomes more distended or swollen. (6) Bowel movements cease. (7) Failure to improve as expected. KIDNEY STONE: You have several small non-obstructing kidney stones. These stones are usually due to increased calcium or uric acid concentrations in your urine. Stones within the kidney itself are not painful. The pain occurs as the stone leaves the kidney to pass down the long tube, called the ureter, leading to the bladder. If the stone is small, it will usually pass by itself. Most patients can pass the stone at home. You will usually receive medications for pain, nausea or vomiting, and sometimes a medication to assist in passing the kidney stone. However, if the pain is very severe or if vomiting prevents you from taking oral pain medications, you may need to return for further treatment. Drink three or four quarts of fluids per day. You will be given pain medication (if needed) and urine strainers. Strain all your urine to see if the stone passes. If your doctor has asked you to bring the stone in for analysis, return with the stone once it has passed. Return if pain or vomiting become severe, if you develop a high fever, if you are unable to pass your urine, or if other unusual symptoms occur. ANTINAUSEA MEDICATION: You have been given a medication to suppress nausea and vomiting. This type of medication can be given as a shot, pill, or suppository. It will usually last for many hours. Pills and shots usually last six to eight hours, suppositories last about 12 hours. For the typical illness, only one or two doses of the medication may be necessary. Mild lightheadedness may occur. This type of medicine can cause drowsiness. Do not drive or operate dangerous machinery while under its influence. Do not mix with alcohol. See your doctor at once if you have muscle spasms or tightness, or uncontrollable motions (particularly of the neck, mouth, or jaw). Persistent vomiting or severe lightheadedness should also be evaluated by the physician. FOLLOW-UP CARE: If you have been referred to a physician for follow-up care, call the physicians office for an appointment as you were instructed or within the next two days. If you experience worsening or a significant change in your symptoms, notify the physician immediately or return to the Emergency Department at any time for re-evaluation. Prescriptions: Ondansetron [Zofran Odt 4 mg Tablet] 1 tab PO Q6H #15 tab.rapdis Forms: Elevated Blood Pressure, Smoking Cessation Education, Return to Work Referrals: CEZAR,LUIS, PA [Primary Care Provider] - Follow up tomorrow
--- NOTE | 2019-01-24 16:11 | RADIOLOGY REPORT (SQ) ---
EXAM DESCRIPTION: CT ABD/PELVIS WITH IV ORAL COMPLETED DATE/TIME: 01/24/2019 3:59 pm REASON FOR STUDY: severe abd pain hx gastric sleeve COMPARISON: None. TECHNIQUE: CT scan of the abdomen and pelvis performed using helical scanning technique with dynamic intravenous contrast injection. No oral contrast. Images reviewed with lung, soft tissue, and bone windows. Reconstructed coronal and sagittal MPR images reviewed. Delayed images for evaluation of the urinary system also acquired. All images stored on PACS. All CT scanners at this facility use dose modulation, iterative reconstruction, and/or weight based d osing when appropriate to reduce radiation dose to as low as reasonably achievable (ALARA). [facility]: Dose Right [facility]: CareDose [facility]: Dose Right [facility]: Teradose 4D [facility]: [place] [employer] CONTRAST TYPE AND DOSE: contrast/concentration: Isovue 350.00 mg/ml; Total Contrast Delivered: 77.0 ml; Total Saline Delivered: 67.0 ml RENAL FUNCTION: BUN 10, creatinine 0.71 RADIATION DOSE: CT Rad equipment meets quality standard of care and radiation dose reduction techniq ues were employed. CTDIvol: 5.1 - 5.9 mGy. DLP: 554 mGy-cm.. LIMITATIONS: None. FINDINGS: LOWER CHEST: No significant findings. No nodules or infiltrates. LIVER: Normal size. No masses. No dilated ducts. SPLEEN: Normal size. No focal lesions. PANCREAS: No masses. No significant calcifications. No adjacent inflammation or peripancreatic fluid collections. Pancreatic duct not dilated. GALLBLADDER: Surgically absent. ADRENAL GLANDS: No significant masses or asymmetry. RIGHT KIDNEY AND URETER: No solid masses. Small nonobstructing stone. Largest diameter is 6.9 mm. Hounsfield units measure 744. No hydronephrosis or hydroureter. LEFT KIDNEY AND URETER: No solid masses. Small nonobstructing stone. Largest diameter is 2.3 mm. No hydronephrosis or hydroureter. AORTA AND VESSELS: No aneurysm. No dissection. Renal arteries, SMA, celiac without stenosis. RETROPERITONEUM: No retroperitoneal adenopathy, hemorrhage or masses. BOWEL AND PERITONEAL CAVITY: Postsurgical changes in the epigastric region consistent with history of gastric sleeve. No surrounding inflammation. No evidence of bowel obstruction. APPENDIX: Normal. PELVIS: No mass. No free fluid. Normal bladder. ABDOMINAL WALL: No masses. No hernias. BONES: No significant or acute findings. OTHER: No other significant finding. IMPRESSION: Small nonobstructing bilateral renal calculi as described. No other significant finding s. TECHNICAL DOCUMENTATION: JOB ID: [id number] Quality ID # [id number]: Final reports with documentation of one or more dose reduction techniques (e.g., Au tomated exposure control, adjustment of the mA and/or kV according to patient size, use of iterative reconstruction technique) 2010 [employer]- All Rights Reserved Reading location - IP/workstation name: [email or web address]
[2019-01-24 16:27] VITALS: BP 116/78
== END 2019-01-24 16:30 | disposition home or self-care (01) ==
LOC: ER 11:50
DX: N20.0 Calculus of kidney (principal); R10.13 Epigastric pain; R10.9 Unspecified abdominal pain; R10.11 Right upper quadrant pain; R10.31 Right lower quadrant pain; R11.0 Nausea; R19.7 Diarrhea, unspecified; F17.200 Nicotine dependence, unspecified, uncomplicated
CPT/HCPCS: 36415; 74177; 80053; 81001; 81025; 83690; 85025; 99284

== ENCOUNTER 2019-02-28 10:07 | Emergency (ER) | payer OTHER ==
[2019-02-28] MEDS ORDERED: KETOROLAC TROMETHAMINE 60 MG/2 ML SDV IM ONE (10:18)
--- NOTE | 2019-02-28 10:18 | ER Document Report ---
ED Medical Screen (RME) - General Chief Complaint: Vaginal Pain Stated Complaint: VAGINAL SWELLING Time Seen by Provider: 02/28/19 10:09 Primary Care Provider: LUIS ROBB PA [Primary Care Provider] - Follow up as needed Mode of Arrival: Wheelchair Information source: Patient Notes: 33-year-old female presents to ED for complaint of severe vaginal pain. She sta lonny her has severe left pelvic pain. She states she went to [facility] and they stated that her left ovary was severely swollen and she needed to come to the emergency room right now. She states she is never had pain this bad before. She states she has had a LEEP procedure and a diagnosis of endometriosis. She has had a gastric sleeve and gallbladder removal. She states she does make half pack a day does not drink or do any drugs. She is having vaginal bleeding at the same time. We will send her to ultrasound to get an ultrasound and then have the blood work completed. I have greeted and performed a rapid initial assessment of this patient. A comprehensive ED assessment and evaluation of the patient, analysis of test results and completion of medical decision making process will be conducted by an additional ED providers. TRAVEL OUTSIDE OF THE [place] IN LAST 30 DAYS: No - Related Data Allergies/Adverse Reactions: No Known Allergies Allergy (Verified 02/28/19 10:11) Past Medical History Renal/ Medical History: Reports: Hx Kidney Stones. Denies: Hx Peritoneal Dialysis Past Surgical History: Reports: Hx Abdominal Surgery - gastric sleeve, Hx Adenoidectomy, Hx Section - 2, Hx Cholecystectomy, Hx Gynecologic Surgery - LEEP, Hx Tonsillectomy, Hx Tubal Ligation - Immunizations Immunizations up to date: Yes Hx Diphtheria, Pertussis, Tetanus Vaccination: Yes - 2013 Physical Exam - Vital signs Vitals: Temp Pulse Resp BP Pulse Ox 97.9 F 85 20 113/83 100 02/28/19 10:12 02/28/19 10:12 02/28/19 10:12 02/28/19 10:12 02/28/19 10:12 Course - Vital Signs Vital signs: Temp Pulse Resp BP Pulse Ox 97.9 F 85 20 113/83 100 02/28/19 10:12 02/28/19 10:12 02/28/19 10:12 02/28/19 10:12 02/28/19 10:12 Doctor's Discharge - Discharge Referrals: LUIS ROBB PA [Primary Care Provider] - Follow up as needed
[2019-02-28 11:03] LABS: ABSOLUTE EOSINOPHILS # (AUTO) 0.1 10^3/uL (0.0-0.6); ABSOLUTE LYMPHOCYTES (AUTO) 2.6 10^3/uL (0.5-4.7); ABSOLUTE MONOCYTES (AUTO) 0.6 10^3/uL (0.1-1.4); ABSOLUTE NEUT (AUTO) 4.3 10^3/uL (1.7-8.2); BASOPHILS % (AUTO) 0.4 % (0-2); EOSINOPHILS % (AUTO) 0.8 % (0-6); HEMATOCRIT 42.7 % (36.0-47.0); HEMOGLOBIN 14.6 g/dL (12.0-15.5); LYMPHOCYTES % (AUTO) 33.9 % (13-45); MEAN CORPUSCULAR HEMOGLOBIN 30.7 pg (27.0-33.4); MEAN CORPUSCULAR HGB CONC 34.2 g/dL (32.0-36.0); MEAN CORPUSCULAR VOLUME 90 fl (80-97); MONOCYTES % (AUTO) 8.5 % (3-13); PLATELET COUNT 238 10^3/uL (150-450); RED BLOOD COUNT 4.76 10^6/uL (3.72-5.28); RED CELL DISTRIBUTION WIDTH 13.8 % (11.5-14.0); SEGMENTED NEUTROPHILS % (AUTO) 56.4 % (42-78); TOTAL CELLS COUNTED % (AUTO) 100 %; WHITE BLOOD COUNT 7.6 10^3/uL (4.0-10.5)
--- NOTE | 2019-02-28 11:20 | RADIOLOGY REPORT (SQ) ---
EXAM DESCRIPTION: U/S NON OB PEL W/DOPPLER COMPLETED DATE/TIME: 02/28/2019 11:01 am REASON FOR STUDY: severe left pelvic pain COMPARISON: None. TECHNIQUE: Dynamic and static grayscale images acquired of the pelvis via transabdominal approach an d recorded on PACS. Additional selected color Doppler and spectral images recorded. LIMITATIONS: None. FINDINGS: UTERUS: Contour normal. No mass. ENDOMETRIAL STRIPE: No focal or generalized thickening. No masses. CERVIX: No nabothian cysts. RIGHT OVARY AND DOPPLER: Not visualized. LEFT OVARY AND DOPPLER: The left ovary is enlarged by a simple cyst, the cyst measuring 5.9 x 5.9 x 5 .1 cm. Arterial and venous Doppler flow is identified. FREE FLUID: None noted. OTHER: No other significant finding. MEASUREMENTS: UTERUS: 9.6 x 4.6 x 4.0 cm ENDOMETRIAL STRIPE: 8 mm RIGHT OVARY: Not visualized. LEFT OVARY: 6.2 x 6.4 x 6.1 cm. IMPRESSION: 1. The left ovary is enlarged by a simple cyst, measuring 6.4 cm. Arterial and venous D oppler flow is identified to the ovary, however please note that intermittent or incomplete torsion c annot be excluded by ultrasound in any enlarged ovary in the setting of acute referable pain. 2. The right ovary is nonvisualized. TECHNICAL DOCUMENTATION: JOB ID: [id number] [employer]- All Rights Reserved Rev-10/14 Reading location - IP/workstation name: [email or web address]
[2019-02-28 11:23] LABS: ALBUMIN 4.4 g/dL (3.5-5.0); ALKALINE PHOSPHATASE 51 U/L (38-126); ANION GAP 8 (5-19); ASPARTATE AMINO TRANSFERASE 21 U/L (14-36); BILIRUBIN,DIRECT 0.2 mg/dL (0.0-0.4); BILIRUBIN,TOTAL 0.4 mg/dL (0.2-1.3); BLOOD UREA NITROGEN 15 mg/dL (7-20); CALCIUM 9.7 mg/dL (8.4-10.2); CARBON DIOXIDE 26 mmol/L (22-30); CHLORIDE 105 mmol/L (98-107); GLUCOSE 85 mg/dL (75-110); POTASSIUM 4.8 mmol/L (3.6-5.0); TOTAL PROTEIN 7.4 g/dL (6.3-8.2)
[2019-02-28 11:36] LABS: APPEARANCE,URINE CLEAR; BILIRUBIN,URINE NEGATIVE (NEGATIVE); COLOR,URINE YELLOW; GLUCOSE, URINE NEGATIVE (NEGATIVE); KETONES,URINE NEGATIVE (NEGATIVE); LEUKOCYTE ESTERASE,URINE NEGATIVE (NEGATIVE); NITRITE,URINE NEGATIVE (NEGATIVE); PROTEIN,URINE NEGATIVE (NEGATIVE); UROBILINOGEN,URINE NEGATIVE mg/dL (<2.0)
--- NOTE | 2019-02-28 12:17 | ER Document Report ---
ED General - General Chief Complaint: Vaginal Bleeding Stated Complaint: VAGINAL SWELLING Time Seen by Provider: 02/28/19 10:09 Primary Care Provider: LUIS ROBB PA [Primary Care Provider] - Follow up as needed Mode of Arrival: Wheelchair TRAVEL OUTSIDE OF THE [place] IN LAST 30 DAYS: No - HPI Notes: 33-year-old otherwise healthy female except for history of endometriosis presents on referral from her PHARMACY TECH with severe left pelvic pain. Patient d eveloped severe left pelvic pain that she woke up this morning. Sharp, constant, somewhat better now after Toradol in the ED. She was seen by Dr. Reis as an outpatient, underwent pelvic examination and was referred here she did not have ultrasonography available. Seen by the physician in triage provider in triage was ordered laboratory and ultrasound evaluation as well as analgesics. When I first evaluate her her pain is substantially improved. No current nausea. No use of anticoagulants. No fever. Pain was initially severe intensity, some rapid onset, nonradiating. Rating toward her left flank. History of prior renal colic but states that this does not feel like her renal colic. - Related Data Allergies/Adverse Reactions: No Known Allergies Allergy (Verified 02/28/19 10:11) Past Medical History - General Information source: Patient - Social History Smoking Status: Current Every Day Smoker Family History: None Patient has suicidal ideation: No Patient has homicidal ideation: No - Medical History Notes: Includes history of endometriosis, remote stone, gastric sleeve she is having associated vaginal bleeding. Renal/ Medical History: Reports: Hx Kidney Stones. Denies: Hx Peritoneal Dialysis Past Surgical History: Reports: Hx Abdominal Surgery - gastric sleeve, Hx Adenoidectomy, Hx Section - 2, Hx Cholecystectomy, Hx Gynecologic Surgery - LEEP, Hx Tonsillectomy, Hx Tubal Ligation - Immunizations Immunizations up to date: Yes Hx Diphtheria, Pertussis, Tetanus Vaccination: Yes - 2013 Review of Systems - Review of Systems Notes: Review of systems as in the history of present illness, otherwise negative x 10 systems. Physical Exam - Vital signs Vitals: Temp Pulse Resp BP Pulse Ox 97.9 F 85 20 113/83 100 02/28/19 10:12 02/28/19 10:12 02/28/19 10:12 02/28/19 10:12 02/28/19 10:12 - Notes Notes: General: Well developed . HEENT: Normocephalic, atraumatic. Pupils equal round reactive to light. No JVD. Chest: No trauma. Respiratory: Good air exchange, normal excursion. Cardiac: Regular rhythm. No murmurs or gallops. Abdomen: Soft, benign. Mild/moderate left lower pelvic tenderness Back: No asymmetry or gross abnormality. Motor: Grossly normal power and tone. Neurologic: Alert, nonfocal. Cranial nerves II-12 are intact. Sensation intact. Vascular: Well perfused. Normal peripheral pulses. Skin: No petechiae or purpura. Course - Re-evaluation Re-evalutation: 02/28/19 12:19 Patient was evaluated by the [facility] provider prior to my evaluation. Studies / interventions have been ordered by this provider and may still be pending. Labs reviewed, CBC unremarkable, chemistry unremarkable. Urine shows blood, likely contamination. Transvaginal ultrasound shows a large 6 cm simple cyst, no evidence of acute torsion or flow interruption. Patient is markedly more comfortable. Going to discharge her home with prescription for tramadol, continue Tylenol, she will follow-up closely with her PHARMACY TECH and return immediately for any worsening. Will place a call to her taximeter repairer as well to discuss findings and follow-up. - Vital Signs Vital signs: Temp Pulse Resp BP Pulse Ox 97.9 F 85 20 113/83 100 02/28/19 10:12 02/28/19 10:12 02/28/19 10:12 02/28/19 10:12 02/28/19 10:12 - Laboratory Result Diagrams: 02/28/19 10:48 02/28/19 10:48 Laboratory results interpreted by me: 02/28/19 11:00 Urine Blood LARGE H Discharge - Discharge Clinical Impression: Ovarian cyst Qualifiers: Laterality: left Qualified Code(s): N83.202 - Unspecified ovarian cyst, left side Condition: Stable Disposition: HOME, SELF-CARE Instructions: Ovarian Cyst ([facility]) Prescriptions: Tramadol HCl [Ultram 50 mg Tablet] 50 mg PO Q6 PRN #12 tablet PRN Reason: Referrals: LUIS ROBB PA [Primary Care Provider] - Follow up as needed
[2019-02-28 12:33] VITALS: BP 108/71
== END 2019-02-28 12:31 | disposition home or self-care (01) ==
LOC: ER 10:07
DX: N83.292 Other ovarian cyst, left side (principal); R10.2 Pelvic and perineal pain; N93.9 Abnormal uterine and vaginal bleeding, unspecified; Z98.84 Bariatric surgery status
CPT/HCPCS: 99284; 96372; 36415; 84703; 85025; 80053; 81001; 76856; 93976; J1885

== ENCOUNTER 2019-06-08 10:19 | Emergency (ER) | payer OTHER ==
[2019-06-08 10:26] VITALS: BP 118/77
[2019-06-08] MEDS ORDERED: LIDOCAINE 2% JELLY 30 ML TUBE TOP ONE (10:41)
--- NOTE | 2019-06-08 10:41 | ER Document Report ---
ED Medical Screen (RME) - General Stated Complaint: POSSIBLE HEMORRHOIDS Time Seen by Provider: 06/08/19 10:38 Primary Care Provider: LUIS ROBB PA [Primary Care Provider] - Follow up as needed TRAVEL OUTSIDE OF THE [place] IN LAST 30 DAYS: No - HPI Notes: 06/08/19 10:40 Patient is a 34-year-old female sent over by her MACHINE STITCHER for a thrombosed hemorrhoid. No fever. I have treated and performed a rapid initial assessment of this patient. A comprehensive ED assessment and evaluation of the patient, analysis of test results and completion of medical decision making process will be conducted by additional ED providers. PHYSICAL EXAMINATION: GENERAL: Well-appearing, well-nourished and in no acute distress. A&Ox4. Answers questions appropriately. - Related Data Allergies/Adverse Reactions: No Known Allergies Allergy (Verified 02/28/19 10:11) Past Medical History Renal/ Medical History: Reports: Hx Kidney Stones. Denies: Hx Peritoneal Dialysis Past Surgical History: Reports: Hx Abdominal Surgery - gastric sleeve, Hx Adenoidectomy, Hx Section - 2, Hx Cholecystectomy, Hx Gynecologic Surgery - LEEP, Hx Tonsillectomy, Hx Tubal Ligation - Immunizations Immunizations up to date: Yes Hx Diphtheria, Pertussis, Tetanus Vaccination: Yes - 2013 Physical Exam - Vital signs Vitals: Temp Pulse Resp BP Pulse Ox 98.7 F 98 18 118/77 100 06/08/19 10:24 06/08/19 10:24 06/08/19 10:24 06/08/19 10:24 06/08/19 10:24 Course - Vital Signs Vital signs: Temp Pulse Resp BP Pulse Ox 98.7 F 98 18 118/77 100 06/08/19 10:24 06/08/19 10:24 06/08/19 10:24 06/08/19 10:24 06/08/19 10:24 Doctor's Discharge - Discharge Referrals: LUIS ROBB PA [Primary Care Provider] - Follow up as needed
--- NOTE | 2019-06-08 14:23 | ER Document Report ---
HPI - HPI Patient complains to provider of: Hemorrhoids Time Seen by Provider: 06/08/19 10:38 Onset: Other - 11 days Onset/Duration: Persistent Quality of pain: Sharp Pain Level: 4 Context: Patient presents complaining of rectal tenderness for the past 11 days. Patient states last bowel movement was 3 days ago. Patient states she saw her drafter apprentice 3 days ago was diagnosed with a fissure. Patient saw her OB doctor today and was diagnosed with a hemorrhoid. Patient states her OB told her to come here for possible incision of a thrombosed hemorrhoid. Associated Symptoms: Other - Rectal tenderness. denies: Fever, Nausea, Vomiting Exacerbated by: Movement Relieved by: Denies Similar symptoms previously: No Recently seen / treated by doctor: Yes - ROS ROS below otherwise negative: Yes Systems Reviewed and Negative: Yes All other systems reviewed and negative - CONSTITUTIONAL Constitutional: DENIES: Fever - NEURO Neurology: DENIES: Headache, Weakness - GASTROINTESTINAL Gastrointestinal: DENIES: Abdominal Pain, Nausea, Constipation Notes: Tenderness to rectal area with hemorrhoids - REPRODUCTIVE Reproductive: DENIES: : - DERM Skin Color: Normal Skin Problems: None Past Medical History - General Information source: Patient - Social History Smoking Status: Current Every Day Smoker Frequency of alcohol use: None Drug Abuse: None Occupation: Home care Lives with: Family Family History: None Patient has suicidal ideation: No Patient has homicidal ideation: No Renal/ Medical History: Reports: Hx Kidney Stones, Hx Ovarian Cysts. Denies: Hx Peritoneal Dialysis Skin Medical History: Reports Other - Hidradenitis Past Surgical History: Reports: Hx Abdominal Surgery - gastric sleeve, Hx Adenoidectomy, Hx Section - 2, Hx Cholecystectomy, Hx Gynecologic Surgery - LEEP, Hx Tonsillectomy, Hx Tubal Ligation - Immunizations Immunizations up to date: Yes Hx Diphtheria, Pertussis, Tetanus Vaccination: Yes - 2013 Vertical Provider Document - CONSTITUTIONAL Agree With Documented VS: Yes Exam Limitations: No Limitations General Appearance: WD/WN, No Apparent Distress - INFECTION CONTROL TRAVEL OUTSIDE OF THE [place] IN LAST 30 DAYS: No - HEENT HEENT: Atraumatic, Normocephalic - NECK Neck: Normal Inspection - RESPIRATORY Respiratory: Breath Sounds Normal, No Respiratory Distress - CARDIOVASCULAR Cardiovascular: Regular Rate, Regular Rhythm - GI/ABDOMEN Gastrointestinal: Abdomen Soft Notes: Patient with prolapsed internal hemorrhoid, no obvious fissure, no purulent drainage or bleeding. Area is exquisitely tender to palpation. - BACK Back: Normal Inspection - MUSCULOSKELETAL/EXTREMETIES Musculoskeletal/Extremeties: OPHELIA NICOLE - NEURO Level of Consciousness: Awake, Alert, Appropriate Motor/Sensory: No Motor Deficit - DERM Integumentary: Warm, Dry Course - Re-evaluation Re-evalutation: 06/08/19 14:25 After application of topical lidocaine jelly, gentle pressure was used to reduce prolapsed internal hemorrhoid. Patient had immediate relief of her symptoms and reports feeling much better. No palpable abscess noted on digital rectal exam. - Vital Signs Vital signs: Temp Pulse Resp BP Pulse Ox 98.7 F 98 18 118/77 100 06/08/19 10:24 06/08/19 10:24 06/08/19 10:24 06/08/19 10:24 06/08/19 10:24 Discharge - Discharge Clinical Impression: Prolapsed internal hemorrhoids Condition: Stable Disposition: HOME, SELF-CARE Instructions: Hemorrhoids ([facility]) Additional Instructions: Return immediately for any new or worsening symptoms Followup with your primary care provider, call tomorrow to make a followup appointment Follow-up with your drafter apprentice for recheck Stay well-hydrated Avoid constipation or straining with bowel movements. Referrals: LUIS ROBB PA [Primary Care Provider] - Follow up as needed LONI WEEKS MD [ACTIVE STAFF] - Follow up in 3-5 days
== END 2019-06-08 14:40 | disposition home or self-care (01) ==
LOC: ER 10:19
DX: K64.8 Other hemorrhoids (principal); F17.200 Nicotine dependence, unspecified, uncomplicated; Z98.84 Bariatric surgery status
CPT/HCPCS: 99282